=== PATIENT | female | born 2000 | race Caucasian/White ===

== ENCOUNTER 2019-06-28 17:19 | Emergency (ER) | payer OTHER ==
[~2019-06-28] VITALS: Ht 162.6 cm; Wt 70.7 kg
--- NOTE | 2019-06-28 17:59 | ED General ---
General Chief Complaint: Chest Pain Stated Complaint: CHEST PAIN Nursing Triage Note: Patient reports sudden onset of sternal chest pain radiating to her throat while cleaning out stalls at the [facility] horse barn. She reports her heart was racing and she became light headed. She rates her pain right now at a 2/10, states it was a 5-6/10 at the worst. Nursing Sepsis Screen: No Definite Risk Source of Information: Patient Exam Limitations: No Limitations History of Present Illness Date Seen by Provider: Jun 28, 2019 Time Seen by Provider: 17:40 Initial Comments Patient is a 19-year-old right-handed female presents with substernal chest pain rating to neck starting 35 minutes prior to arrival all practicing roping skills. Patient states she had roped a hey bail when she felt a sudden onset sharp chest pain lasting approx 20 mins. Symptom have essentially resolved. Denies SOA, palpitations, and back pain. No other acute symptoms or complaints. Timing/Duration: 1/2 Hour Severity: Mild Associated Systoms: Chest Pain Allergies and Home Medications Allergies Coded Allergies: mold (Verified Allergy, Unknown, 06/28/19) Patient Home Medication List Home Medication List Reviewed: Yes Review of Systems Review of Systems Constitutional: see HPI EENTM: see HPI Respiratory: see HPI Cardiovascular: see HPI Gastrointestinal: see HPI Genitourinary: see HPI Musculoskeletal: see HPI Skin: see HPI Psychiatric/Neurological: See HPI Hematologic/Lymphatic: See HPI Past Ssymxuv-Hxkojs-Lqlwsj Hx Past Med/Social Hx: Reviewed Nursing Past Med/Soc Hx Patient Social History Recent Foreign Travel: No Contact w/Someone Who Travel: No Recent Infectious Disease Expo: No Physical Exam Vital Signs Vital Signs - First Documented 06/28/19 17:26 Temp 35.7 Pulse 84 Resp 18 B/P (MAP) 148/75 (99) Pulse Ox 97 O2 Delivery Room Air Capillary Refill : Less Than 3 Seconds Height, Weight, BMI Height: '" Weight: lbs. oz. kg; 26.00 BMI Method: General Appearance: No Apparent Distress, WD/WN, Anxious Eyes: Bilateral Eye Normal Inspection, Bilateral Eye PERRL, Bilateral Eye EOMI HEENT: PERRL/EOMI, Normal ENT Inspection Neck: Non Tender, Supple Respiratory: Chest Non Tender, Lungs Clear Cardiovascular: Regular Rate, Rhythm, No Edema Gastrointestinal: Non Tender, Soft Neurologic/Psychiatric: Alert, Oriented x3 Focused Exam Sepsis Stage: Ruled Out Progress/Results/Core Measures Suspected Sepsis Recent Fever Within 48 Hours: No Infection Criteria Present: None New/Unexplained Altered Menta: No Sepsis Screen: No Definite Risk SIRS Temperature: Pulse: 84 Respiratory Rate: 18 Blood Pressure 148 /75 Mean: 99 Results/Orders My Orders Orders - BROWN JACOBO DO Urine Bedside (06/28/19 17:35) Ekg Tracing (06/28/19 17:40) Chest 1 View Ap/Pa Only (06/28/19 17:40) Vital Signs/I&O 06/28/19 06/28/19 17:26 17:26 Temp 35.7 Pulse 84 Resp 18 B/P (MAP) 148/75 (99) Pulse Ox 97 O2 Delivery Room Air Room Air Capillary Refill : Less Than 3 Seconds Blood Pressure Mean: 99 Departure Communication (Admissions) Reproducible chest wall pain resolved while in the emergency department. CXR and EKG are unremarkable. EKG: Sinus rhythm, rate 82, no acute ST-T wave changes. QT 413. Chest x-ray: No acute cardiopulmonary disease Impression Primary Impression: Chest wall pain Disposition: 01 HOME, SELF-CARE Condition: Stable Departure-Patient Inst. Referrals: NO,LOCAL PHYSICIAN (PCP/Family) Primary Care Physician Patient Instructions: Chest Pain Add. Discharge Instructions: You were evaluated in the emergency department for chest x-ray. EKG and chest x- ray are performed and are normal. Please take Tylenol or ibuprofen as needed for chest wall pain and avoid physical and strenuous physical activity for the next 2 days. Follow-up with your PCP as needed if symptoms persist. All discharge instructions reviewed with patient and/or family. Voiced unde rstanding. BROWN AJCOBO DO Jun 28, 2019 17:59
[2019-06-28 18:13] VITALS: BP 141/81
--- NOTE | 2019-06-28 18:46 | Diagnostic Imaging Report ---
CLINICAL INDICATION: Patient was roping a hay [place] earlier and started having chest pain. EXAM: Portable chest x-ray upright view. COMPARISONS: None. FINDINGS: Lungs/pleura: Lungs are clear. There is no pneumothorax. There is no pleural effusion. Mediastinum: Unremarkable. Pulmonary vasculature: Unremarkable. Heart: Unremarkable. Bones/extrathoracic soft tissue: Unremarkable. IMPRESSION: There is no radiographic evidence of acute cardiopulmonary process. Dictated by: Dictated on workstation # [id number]
== END 2019-06-28 18:13 | disposition home or self-care (01) ==
LOC: ER FS 17:21
DX: R07.89 Other chest pain (principal)
CPT/HCPCS: 71045; 84703; 93005

== ENCOUNTER → 2021-08-10 | Outpatient (CLI) | payer BC, OTHER ==
--- NOTE | 2021-08-10 12:34 | Diagnostic Imaging Report ---
Ultrasound left breast, limited. Indication: Left breast mass There are no prior studies available for comparison. The patient has a palpable abnormally in the 6 o'clock position of the retroareolar region of the left breast. The ultrasound examination of this area shows a fairly well-circumscribed 7 x 7 x 5 mm mass in this area. This mass has a thin hypoechoic rim and with the central area of increased echogenicity occupying most of the mass. The patient states this may represent a fibroadenoma. This could also be secondary to a prominent lymph node. The possibility that this is related to a complex cyst would be less likely but should still be considered. If further evaluation is desired, then surgical excision should be considered. An ultrasound-guided biopsy could also be performed. If there is no intervention at this time, then a short-term (three-month) followup ultrasound exam should be obtained. Impression: 1. There is a small hypoechoic mass in the area of the patient's palpable abnormality in the retroareolar region of the left breast. Considerations and recommendations as above. 2. These results were discussed with Dr. Chepe Levi. ACR BI-RADS Category 3: Probably benign findings. Result letter will be mailed to the patient. Note: At least 10% of breast cancer is not imaged by mammography. Dictated by: Dictated on workstation # [id number]
== END ==
LOC: RAD 11:00
PROVIDERS: ATTEND Family Medicine
DX: N63.20 Unspecified lump in the left breast, unspecified quadrant (principal)
CPT/HCPCS: 76642